=== PATIENT | female | born 1975 | race Hispanic/Latino ===

== ENCOUNTER 2024-02-21 10:05 | Emergency (ER) | payer BC, OTHER ==
[~2024-02-21] VITALS: Ht 160 cm; Wt 89.6 kg
[2024-02-21] MEDS ORDERED: FAMOTIDINE20 MG PO (10:31)
[2024-02-21] MEDS ORDERED: PROTONIX20 MG PO (10:31)
[2024-02-21] MEDS ORDERED: METFORMIN HCL750 MG (10:31)
[2024-02-21] MEDS ORDERED: IOPAMIDOL 370 MG/ML 100 ML INFUS..BTL INJ ONE (10:42)
[2024-02-21] MEDS: Morphine 4mg INJECTION 4 MG/ML INJ IV ONE (10:48)
[2024-02-21] MEDS: ONDANSETRON HCL INJ 2MG/ML 2ML 2 MG/ML VIAL IV STA (10:48)
[2024-02-21] MEDS ORDERED: CYCLOBENZAPRINE5 MG PO (12:29)
[2024-02-21 13:02] VITALS: PULSE 73; RESP 16; TEMP 99.1; O2SAT 96
== END 2024-02-21 13:02 | disposition home or self-care (01) ==
LOC: FSED 10:13
DX: M54.50 Low back pain, unspecified (principal); R10.9 Unspecified abdominal pain; E11.9 Type 2 diabetes mellitus without complications; K21.9 Gastro-esophageal reflux disease without esophagitis; Z79.84 Long term (current) use of oral hypoglycemic drugs; Z90.49 Acquired absence of other specified parts of digestive tract; Z87.442 Personal history of urinary calculi
CPT/HCPCS: 74177; 80053; 81003; 81025; 85025; 96374; 96375; 99284; J2270; J2405; Q9967